=== PATIENT | female | born 1990 | race African-American/Black ===

== ENCOUNTER 2017-07-16 17:29 | Emergency (ER) | payer SELFPAY ==
[2017-07-16] MEDS ORDERED: Dexamethasone 4 mg/ml Vial ONE ×2 (18:11)
== END 2017-07-16 18:45 | disposition home or self-care (01) ==
LOC: ERS 17:29
DX: J02.9 Acute pharyngitis, unspecified (principal)
CPT/HCPCS: 87081; 87430; 99283; J1100

== ENCOUNTER 2017-09-04 19:41 | Emergency (ER) | payer SELFPAY ==
[2017-09-04] MEDS ORDERED: Lidocaine 1% w/Epinephrine 1:100K 20 ML VIAL ONE (20:59)
[2017-09-04] MEDS ORDERED: Adacel (T-DAP) 0.5 ML VIAL ONE (21:40)
== END 2017-09-04 22:07 | disposition home or self-care (01) ==
LOC: ERS 19:41
DX: S01.01XA Laceration without foreign body of scalp, initial encounter (principal); F17.210 Nicotine dependence, cigarettes, uncomplicated; Z23 Encounter for immunization; Y00.XXXA Assault by blunt object, initial encounter
CPT/HCPCS: 12002; 90471; 90715; J2001

== ENCOUNTER 2017-09-16 11:01 | Emergency (ER) | payer SELFPAY | END 2017-09-16 12:15 | disposition home or self-care (01) | LOC: ERS 11:01 | DX: S01.01XD Laceration without foreign body of scalp, subsequent encounter (principal); F17.210 Nicotine dependence, cigarettes, uncomplicated; Z71.6 Tobacco abuse counseling | CPT/HCPCS: 99406 ==

== ENCOUNTER 2018-01-19 14:07 | Observation (INO) | payer MEDICAID, SELFPAY ==
[2018-01-19 15:04] LABS: Hemoglobin 5.4 g/dL (12.0-16.0); Mean Corpuscular HGB CONC 29.3 g/dL (32.0-36.0); Mean Corpuscular Hemoglobin 17.5 pg (27.0-31.0); Mean Corpuscular Volume 59.6 fL (78.0-98.0); Mean Platelet Volume 5.6 fL (7.4-10.4); Platelet Count 900 thou/uL (130-400); RBC Distribution Width 35.4 % (11.5-14.5); Red Blood Cell (RBC) Count 3.08 mill/uL (4.20-5.40); White Blood Cell (WBC) Count 12.2 thou/uL (4.8-10.8)
[2018-01-19 15:15] LABS: ALT (SGPT) 11 U/L (8-55); AST (SGOT) 13 U/L (5-34); Albumin 4.6 g/dL (3.5-5.0); Alkaline Phosphatase 90 U/L (40-150); Anion Gap 13 mmol/L (10-20); BUN (Urea Nitrogen) 9 mg/dL (7.0-18.7); Bilirubin, Total 0.6 mg/dL (0.2-1.2); Calc. Creatinine Clearance 0 mL/min (70-130); Calcium 9.4 mg/dL (7.8-10.44); Carbon Dioxide 21 mmol/L (22-29); Chloride 106 mmol/L (98-107); Estimated GFR-MDRD Greater than 90; Globulin 3.4 g/dL (2.4-3.5); Glucose 114 mg/dL (70-105); Lipase 21 U/L (8-78); Potassium 3.8 mmol/L (3.5-5.1); Sodium 136 mmol/L (136-145)
[2018-01-19 15:16] LABS: #Basophils 0.1 thou/uL (0.0-0.2); #Eosinphils 0.2 thou/uL (0.0-0.7); #Lymphocytes 1.1 thou/uL (1.20-3.40); #Monocytes 0.4 thou/uL (0.11-0.59); #Neutrophils 10.3 thou/uL (1.40-6.50); %Basophils 0.7 % (0.0-1.0); %Eosinophils 1.5 % (0.0-10.0); %Lymphocytes 9.3 % (21.0-51.0); %Monocytes 3.6 % (0.0-10.0); %Neutrophils 84.8 % (42.0-75.0); Acanthocytes SLIGHT = 1-5 cells (100X) (None Seen); Anisocytosis SLIGHT = 6-15 cells (100X) (0-5/hpf); Elliptocytes SLIGHT = 2-5 cells (100X) (0-1/hpf); Eosinophils 5 % (0-10); Hypochromia SLIGHT = 6-15 cells (100X) (0-5/hpf); Lymphocytes 4 % (21-51); MDiff Complete? YES; Microcytosis MODERATE=15-30 cells (100X) (0-5/hpf); Monocytes 5 % (0-10); Neutrophil 86 % (42-75); PLT Morphology Comment Appears Increased; Poikilocytosis SLIGHT = 6-15 cells (100X) (0-5/hpf); Polychromasia SLIGHT = 2-3 cells (100X) (0-2/hpf); Tear Drops SLIGHT = 2-5 cells (100X) (0-1/hpf)
[2018-01-19 15:27] LABS: Bilirubin Negative (Negative); Blood, Urine Large (Negative); Clarity CLOUDY (Clear); Glucose, Urine (Dipstick) Negative (Negative); Leukocyte Small (Negative); Nitrite Negative (Negative); Protein, Urine (Dipstick) Trace mg/dL (Neg-Trace); Specific Gravity, Urine 1.025 (1.002-1.036); pH, Urine 6.5 (5.0-9.0)
[2018-01-19 15:29] LABS: Hyaline Casts/LPF 4-6 HYALINE CAST LPF (0-3 Hyaline); RBC/HPF 0-3 HPF (0-3); Squamous Epithelial 21-50 HPF (0-3)
[2018-01-19 15:32] LABS: Pregnancy Test - Urine (BHCG) Negative (Negative); Pregu Control Background? CLEAR/WHITE (CLR/WHITE); Pregu Control Bar Appear? YES (CONTROL BAR); Specific Gravity 1.025 (1.002-1.036)
[2018-01-19 15:39] LABS: Bacteria/HPF 2+ HPF (None Seen); Trichomonas/HPF 1+ HPF (None Seen); Yeast-All Forms None Seen HPF (None Seen)
[2018-01-19] MEDS ORDERED: cefTRIAXone\\ROCEPHIN 1 GM in Sodium Chloride 0.9% 100 ML IVPB SCH (16:45)
[2018-01-19] MEDS ORDERED: metroNIDAZOLE 500 MG TAB PO SCH (16:45)
--- NOTE | 2018-01-19 17:36 | ULT ---
PELVIC ULTRASOUND: History: Tubal ligation, anemia. Cramping and abdominal pain. Comparison: None. Technique: Utilizing a multihertz transducer, sonographic images of the pelvis was performed in the l ongitudinal and transverse plane utilizing transabdominal and endovaginal imaging. Ovaries are interr ogated with grayscale, color flow, doppler imaging and spectral waveform analysis. FINDINGS: The uterus is identified. There are no myometrial masses. The uterus measures 5.3 x 6.1 x 8.1 cm. Endometrium is thickened and measures 1.8 cm. Left ovary and right ovary have a normal echotexture. Left ovary measures 3.1 x 1.5 x 2.2 cm. Right ovary measures 2.5 x 3.1 x 2.8 cm. Anechoic focus in the right ovary measuring 2.4 x 1.5 x 2.3 cm, compatible with a cyst. No free fluid. Ovarian Doppler: Vascular flow to both ovaries. IMPRESSION: 1. Right ovarian cyst. 2. Otherwise, unremarkable ultrasound. POS: [facility]
[2018-01-19] MEDS: Acetaminophen 500 MG TAB PO PRN (18:08)
--- NOTE | 2018-01-19 18:53 | HP ---
DATE OF SERVICE: 01/19/2018 TIME OF EVALUATION: 1600 until 1630. LOCATION: ER bed #1/ultrasound suite in the ER. REQUESTING PHYSICIAN: Luis Isbell MD. REASON FOR EVALUATION: Acute anemia from heavy menstrual bleeding. HISTORY OF PRESENT ILLNESS: In brief, this is a 28-year-old -[place] female, 3, para 3, status post BTL after her last delivery, with 2 prior C-sections, who presents with 2-week histor y of heavy menstrual bleeding. She came in for initial symptoms of dizziness, but now feels much bet ter after IV fluid resuscitation. I was called by Dr. Isbell in the emergency department after the initial hemoglobin returned with a value of 5. The patient was admitted to me for 2 units packed red blood cells due to the acute anemia with hemoglobin value of 5. As an incidental finding, platelets were noted to be 900 likely a reactive process. PAST MEDICAL HISTORY: No diabetes or hypertension. PAST SURGICAL HISTORY: Significant for x2. GYNECOLOGICAL HISTORY: The patient is status post BTL with cycles normally. This cycle lasted 2 wee ks and was heavy. Her cycles are predictable and usually last 4 days. SOCIAL HISTORY: Occasional tobacco use and marijuana use. The patient denies any injectable or drug use. ALLERGIES: None. MEDICATIONS: None. PHYSICAL EXAMINATION: She is afebrile and normotensive. Initial pulse was slightly tachycardic, but after IV fluid hydration, pulse is now less than 100. I evaluated the patient in the ultrasound may te and found her to be in no acute distress. She was alert and oriented and was not having any ortho static symptoms. I was present for the ultrasound, which was transabdominal and transvaginal. The transabdominal ultr asound had a suspicion of a trilaminar endometrial cavity suspicious for a thickened endometrium. Th ere is a 2-cm simple right ovarian cyst without abnormal features. The left ovary is grossly normal. I was also present for the transvaginal examination, which confirmed a thickened endometrial cavity of 1.8 cm. There is no active bleeding at this time per vagina. LABORATORY DATA: The patient's white blood cell count is 12, hemoglobin of 5, and again platelets ar e 900. Urine test was checked and urine test was negative. On additional labora tory data, a vaginitis panel was collected with results indicating trichomoniasis. Vaginitis panel w as also positive for Gardnerella vaginitis. The patient also had a gonorrhea and chlamydia PCR colle cted, but that is still pending. The patient's chemistry shows a normal AST and ALT with a creatinin e of 0.6. Urine shows small leuk esterase with 2+ urine bacteria, compatible with UTI may be seconda ry to trichomoniasis. ASSESSMENT AND PLAN: This is a 28-year-old -[place] , status post bilateral tubal ligation with a 2-week hist ory of heavy menstrual bleeding and acute anemia. 1. Two units packed red blood cells for hemoglobin stabilization. 2. IV fluids. 3. Platelets are 900. Hematology/Oncology was consulted for the elevated platelets and they feel th at this is reactive due to acute anemia. She can have repeat CBC with [facility] or Hematology/Oncology as an outpatient. 4. The patient has trichomoniasis and bacterial vaginosis. We will treat with Flagyl p.o. We will also give Rocephin 1 gram IV for suspected urinary tract infection. 5. We will keep the patient overnight for observation for now. 6. I have discussed with her the potential of starting control pills as an outpatient to preve nt another episode of bleeding. 7. There is no evidence of pelvic inflammatory disease at this time. 8. No evidence of tubo-ovarian abscess. 9. The patient requires an endometrial biopsy due to thickened endometrium. I searched for an endom etrial pipelle within the [facility] office, procedure room on [facility], and the other hospital wards. There is no EMB pipelle currently available. The patient will have an EMB performed as an outpatie nt.
--- NOTE | 2018-01-19 20:18 | PDOC.EVN ---
Event Note - Event Note Event Note: PRBC follow up: Patient now on 3 SE Now s/p 1 unit PRBCs, only sxs is VILLARREAL. Although not tachycardic, her last BP was slightly low at 98/55. As the HMB may return with next cycle, I will give her another unit (2 total, as ordered) to stabilize Hct.
--- NOTE | 2018-01-20 06:30 | PDOC.EVN ---
Event Note - Event Note Event Note: HD 2 Admitted yesterday S/P 2 units PRBCs...headache resolved. S. No further bleeding O. Afebrile Pulse 70s BP 90/60s No VB A/P: Doing well, no further VB....HCT from tghis AM and GC/CHL still prending Treated for Trich yesterday Plan: 1. Prob DC to home this AM 2. Await GC/CHL result and new HCT 3. Home with RX for OCPs x 3 mos to prevent further bleed 4. May need EMB after discharge as no EMB pipelle here. Recommended [facility], has MD in [place].
[2018-01-20 06:47] LABS: #Eosinphils 0.4 thou/uL (0.0-0.7); #Lymphocytes 1.2 thou/uL (1.20-3.40); #Monocytes 0.6 thou/uL (0.11-0.59); #Neutrophils 6.1 thou/uL (1.40-6.50); %Basophils 0.3 % (0.0-1.0); %Eosinophils 4.8 % (0.0-10.0); %Lymphocytes 14.7 % (21.0-51.0); %Monocytes 6.9 % (0.0-10.0); %Neutrophils 73.3 % (42.0-75.0); Anisocytosis MODERATE=16-30 cells (100X) (0-5/hpf); Elliptocytes SLIGHT = 2-5 cells (100X) (0-1/hpf); Hemoglobin 7.5 g/dL (12.0-16.0); Hypochromia MODERATE=16-30 cells (100X) (0-5/hpf); MDiff Complete? YES; Mean Corpuscular HGB CONC 30.7 g/dL (32.0-36.0); Mean Corpuscular Volume 68.5 fL (78.0-98.0); Mean Platelet Volume 5.4 fL (7.4-10.4); PLT Morphology Comment Appears Increased; Platelet Count 758 thou/uL (130-400); RBC Distribution Width 32.7 % (11.5-14.5); Red Blood Cell (RBC) Count 3.59 mill/uL (4.20-5.40); White Blood Cell (WBC) Count 8.3 thou/uL (4.8-10.8)
--- NOTE | 2018-01-20 06:59 | PDOC.EVN ---
Event Note - Event Note Event Note: Post RBC Hct is HH= 7.5/24.6
--- NOTE | 2018-01-20 07:52 | DIS ---
DATE OF ADMISSION: 01/19/2018 DATE OF DISCHARGE: 01/20/2018 PRINCIPAL DIAGNOSIS: Heavy menstrual bleeding. PRINCIPAL PROCEDURE: 1. Pelvic ultrasound. 2. Two units packed red blood cell transfusion. HOSPITAL COURSE: In brief, this patient was admitted as a 28-year-old -[place] multigravida with 2 weeks of heavy menstrual bleeding, who was seen in the ER with a hemoglobin of 5. I was sauceda d by the ER physician for admission for blood transfusion. Her criteria for transfusion was hemoglob in of 5 and the patient had a complaint of some dizziness prior to arrival. I was present in the ER for the pelvic ultrasound, which showed a possible thickened endometrial cavity of 1.8 cm with a smal l echogenic focus within the cavity, which may be a small cervical polyp. There was also a simple un hao 3 cm right ovarian cyst. I attempted to do an endometrial biopsy upon admission, but I was not a ble to locate an endometrial biopsy pipelle, so it was not performed. I discussed this with the anna ent and recommended that she have this at the followup as an outpatient. She did have a VPIII return ed positive for trichomoniasis and she received Flagyl 2 grams p.o. She also had evidence of a possi ble UTI, although this may be secondary to the trichomoniasis. For the possible UTI, which was found on labs, I gave her Rocephin 1 gram IV. The patient had 2 units of packed red blood cells, and by t he time of this dictation, which is 01/20/2018 at 06:30, the followup CBC was still pending. Gonorrh ea and chlamydia were also pending and will be checked prior to discharge. I will check out the anna ent to the oncoming provider at 8:00 a.m. to follow up the CBC and the gonorrhea and chlamydia if it has not yet returned. As discharge medication, I wrote for Reclipsen oral contraceptive for her to [place] for 3 months to try to prevent a recurrence of bleeding and I stressed to her the need to follow up with [facility] for possible endometrial biopsy within the next week. DISCHARGE MEDICATION: Includes only the Reclipsen control pill. Once again, we will await the gonorrhea and chlamydia and CBC results prior to planned discharge late r today.
[2018-01-20 07:54] VITALS: BP 98/64; TEMP 98.2
[2018-01-20] MEDS: Acetaminophen 500 MG TAB PO PRN (09:29)
[2018-01-20 16:20] LABS: Chlamydia by PCR Not Detected (NotDetected)
[2018-01-20 16:23] LABS: GC by PCR Not Detected (NotDetected)
== END 2018-01-20 12:29 | disposition home or self-care (01) ==
LOC: ERS 14:07 → 3SE 17:09
PROVIDERS: ADMIT Obstetrics & Gynecology; ATTEND Obstetrics & Gynecology
DX: D62 Acute posthemorrhagic anemia (principal); N92.0 Excessive and frequent menstruation with regular cycle; N76.0 Acute vaginitis; B96.89 Other specified bacterial agents as the cause of diseases classified elsewhere; A59.9 Trichomoniasis, unspecified; Z79.3 Long term (current) use of hormonal contraceptives
CPT/HCPCS: 36415; 36430; 76856; 80053; 81003; 81015; 81025; 83690; 84443; 85025; 85060; 86850; 86900; 86901; 87480; 87491; 87510; 87591; 87660; 96365; G0378; J0696; J7050; P9016

== ENCOUNTER 2024-02-06 13:31 | Emergency (ER) | payer SELFPAY ==
[2024-02-06 14:36] LABS: #Basophils 0.05 10x3/uL (0.0-0.2); #Eosinophils Less than 0.03 10x3/uL (0.0-0.7); %Basophils 0.9 % (0.0-1.0); %Eosinophils 0.2 % (0.0-10.0); %Lymphocytes 17.9 % (21.0-51.0); %Monocytes 5.3 % (0.0-10.0); Hematocrit 22.1 % (36.0-47.0); Hemoglobin 6.1 g/dL (12.0-16.0); Mean Corpuscular HGB CONC 27.6 g/dL (32.0-36.0); Mean Corpuscular Hemoglobin 17.7 pg (27.0-31.0); Mean Corpuscular Volume 64.1 fL (78.0-98.0); Platelet Count 89 10x3/uL (130-400); RBC Distribution Width 30.1 % (11.5-14.5); Red Blood Cell (RBC) Count 3.45 mill/uL (4.20-5.40)
[2024-02-06 14:49] LABS: ALT (SGPT) 11 U/L (8-55); AST (SGOT) 13 U/L (5-34); Albumin 4.1 g/dL (3.5-5.0); Alkaline Phosphatase 98 U/L (40-110); Anion Gap 16 mmol/L (10-20); BUN (Urea Nitrogen) 10 mg/dL (7.0-18.7); Bilirubin, Total 0.4 mg/dL (0.2-1.2); Calc. Creatinine Clearance 0 mL/min (70-130); Calcium 9.2 mg/dL (7.8-10.44); Carbon Dioxide 21 mmol/L (22-29); Chloride 109 mmol/L (98-107); Estimated GFR 120; Globulin 3.4 g/dL (2.4-3.5); Glucose 92 mg/dL (70-105); Potassium 3.7 mmol/L (3.5-5.1); Protein, Total 7.5 g/dL (6.0-8.3); Sodium 142 mmol/L (136-145)
[2024-02-06 14:58] LABS: Anisocytosis SLIGHT = 6-15 cells HPF (0-5); Elliptocytes SLIGHT = 2-5 cells HPF (0-1); Hypochromia SLIGHT = 6-15 cells HPF (0-5); Microcytosis SLIGHT = 6-15 cells HPF (0-5); Platelet Adequacy Comment Platelets Decreased; Polychromasia SLIGHT = 2-3 cells HPF (0-2)
[2024-02-06] MEDS ORDERED: Acetaminophen 500 MG TAB ONE (15:28)
[2024-02-06] MEDS ORDERED: Ondansetron ODT 4 MG TAB ONE (15:28)
[2024-02-06 21:06] LABS: Bilirubin Negative (Negative); Blood, Urine 3+ (Negative); CAUTI Indications for Culture Pelvic or flank pain; Clarity Turbid (Clear); Glucose, Urine (Dipstick) Normal (Negative); Ketone, Urine 100 mg/dL (Negative); Leukocyte Negative Leu/uL (Negative); Nitrite Negative (Negative); Protein, Urine (Dipstick) 50 mg/dL (Neg-Trace); Specific Gravity, Urine 1.037 (1.002-1.036); Squamous Epithelial 21-50 HPF (0-3)
[2024-02-06 21:08] LABS: Bacteria/HPF 1+ HPF (None Seen)
[2024-02-06 21:09] LABS: Urine Culture Reflex No No
[2024-02-06 23:18] LABS: Hematocrit 24.3 % (36.0-47.0); Mean Corpuscular HGB CONC 28.8 g/dL (32.0-36.0); Mean Corpuscular Hemoglobin 19.6 pg (27.0-31.0); Mean Corpuscular Volume 67.9 fL (78.0-98.0); Platelet Count 96 10x3/uL (130-400); RBC Distribution Width 30.5 % (11.5-14.5); Red Blood Cell (RBC) Count 3.58 mill/uL (4.20-5.40)
== END 2024-02-06 23:40 | disposition home or self-care (01) ==
LOC: ERS 13:31
DX: D64.9 Anemia, unspecified (principal); N92.0 Excessive and frequent menstruation with regular cycle; F17.210 Nicotine dependence, cigarettes, uncomplicated
CPT/HCPCS: 36415; 36430; 80053; 81001; 85025; 86850; 86900; 86901; 96360; P9016; Q0162